=== PATIENT | female | born 1970 | race Caucasian/White ===

== ENCOUNTER 2017-10-09 00:39 | Day surgery (SDC) | payer OTHER ==
[~2017-10-09 00:39] MED LIST: ALBU.083IS IH; ALBU90OI INH; ALBU90OI6 INH; AMIT50 PO; AZIT250 PO; Augmentin 875-1 EACH PO; BUDE6HFA INH; BUTASPCAF PO; CARB200 PO; CIME400; CIPR500 PO; CLINDAMYCIN; CLON1 PO; COMBIVENT RESPIM4 GM; CYCL10 PO; DIAZ5 PO; DIPATR PO; DOXY100 PO; DULO30; ESTMEDA; ESTNORT; FLUSAL1005; FLUSAL1005 INH; FLUSAL2505 IH; FLUT44OIA INH; FURO40 PO; GABA300 PO; HYDACE10B PO; HYDACE5 PO; HYDCHL25 PO; HYDCHL50 PO; Hydrochlorothia25 MG PO; IBUP800 PO; LEVCAR2510 PO; LEVFLO500 PO; LEVSOD100 PO; LEVSOD88; LEVSOD88 PO; MAGCIT300 PO; METO100 PO; METO100ER PO; METO50 PO; METO50ER; METR500 PO; MONT10T; Micro-K10 MEQ; Norco 5-325 Ta1 EACH PO; OMEP20ER; OMEP20ER PO; ONDA4 PO; ONDA4ODT MM; ONDA8ODT; ONDA8ODT MM; OXYACE5T; OXYACE5T PO; OXYASA5T PO; OXYC1TAB11 PO; OXYCONTIN; PANT40; PARO10 PO; PARO20 PO; PERCOCET; PRED20 PO; PROACE100 PO; PROCODE120 PO; PROM25 PO; Percocet 10-321 EACH PO; Percocet 5-3251 EACH PO; RANI150; RANI150 PO; RXCYCL10 PO; RXHYD5325; RXHYDACE PO; RXONDA4ODT MM; RXOXYACE PO; RXPROM25 PO; SERT100; SERT25; SUCR1 PO; SULTRIDS PO; TAMS.4ER PO; TOBDEXOPSU OP; TOCO400 PO; TRAM50; TRAM50 PO; Ventolin/Prove6.7 GM INH; Zantac PO; Zofran Odt4 MG PO; Zofran Odt4 MG SL; Zovirax800 MG PO
[2018-01-29] MEDS ORDERED: Ambien5 MG PO (22:40)
[2018-01-29] MEDS ORDERED: DICL75ER PO (22:41)
[2018-01-29] MEDS ORDERED: VENL75ER PO (22:41)
[2018-01-29] MEDS ORDERED: MIRAPEX ER0.75 MG PO (22:42)
[2018-01-30] MEDS ORDERED: Cyclobenzaprine5 MG PO (03:31)
[2018-01-30] MEDS ORDERED: LIDO700A20 TOP (03:31)
== END 2017-10-09 23:09 ==
LOC: ATC 00:39
DX: M27.2 Inflammatory conditions of jaws (principal)
CPT/HCPCS: J1335; J7050

== ENCOUNTER 2017-10-14 10:58 | Day surgery (SDC) | payer OTHER ==
[2018-01-29] MEDS ORDERED: Ambien5 MG PO (22:40)
[2018-01-29] MEDS ORDERED: VENL75ER PO (22:41)
[2018-01-29] MEDS ORDERED: DICL75ER PO (22:41)
[2018-01-29] MEDS ORDERED: MIRAPEX ER0.75 MG PO (22:42)
[2018-01-30] MEDS ORDERED: Cyclobenzaprine5 MG PO (03:31)
[2018-01-30] MEDS ORDERED: LIDO700A20 TOP (03:31)
== END 2017-10-14 15:09 | disposition home or self-care (01) ==
LOC: ATC 10:58
DX: M27.2 Inflammatory conditions of jaws (principal)
CPT/HCPCS: 99211; J1335

== ENCOUNTER → 2017-12-15 | Outpatient (CLI) | payer OTHER ==
[~2017-12-15] MED LIST changes: +Ambien5 MG PO; +Cyclobenzaprine5 MG PO; +DICL75ER PO; +LIDO700A20 TOP; +MIRAPEX ER0.75 MG PO; +VENL75ER PO
== END ==
LOC: LAB EV 09:48
DX: R31.9 Hematuria, unspecified (principal)
CPT/HCPCS: 87086

== ENCOUNTER → 2018-03-30 | Outpatient (CLI) | payer OTHER | END | disposition home or self-care (01) | LOC: LAB SHORT 16:28 → LAB SRC 16:28 | DX: R31.9 Hematuria, unspecified (principal); R55 Syncope and collapse | CPT/HCPCS: 87086 ==

== ENCOUNTER → 2018-12-31 | Outpatient (CLI) | payer OTHER | END | disposition home or self-care (01) | LOC: LAB EV 17:21 → LAB SHORT 17:21 | DX: G25.81 Restless legs syndrome (principal) | CPT/HCPCS: 36415; 82306; 82607; 83735 ==

== ENCOUNTER 2019-04-17 09:17 | Emergency (ER) | payer OTHER ==
[~2019-04-17] VITALS: Ht 152.4 cm; Wt 103.4 kg
[~2019-04-17 09:17] MED LIST changes: -CARB200 PO; -GABA300 PO; -VENL75ER PO
[2019-04-17 09:48] LABS: BASOPHILS ABSOLUTE AUTO 0.07 K/mm3 (0.00-0.23); BASOPHILS PERCENT AUTO 1 % (0-2); EOSINOPHILS ABSOLUTE AUTO 0.14 K/mm3 (0.00-0.68); EOSINOPHILS PERCENT AUTO 1 % (0-6); Hematocrit 40.2 % (33.0-51.0); Hemoglobin 12.4 g/dL (11.5-16.0); IMMATURE GRAN ABSOLUTE AUTO 0.03 K/mm3 (0.00-0.10); IMMATURE GRAN PERCENT AUTO 0 % (0-1); LYMPHOCYTES ABSOLUTE AUTO 1.68 K/mm3 (0.84-5.20); LYMPHOCYTES PERCENT AUTO 17 % (21-46); MONOCYTES ABSOLUTE AUTO 0.93 K/mm3 (0.16-1.47); MONOCYTES PERCENT AUTO 10 % (4-13); Mean Corpuscular HGB 31.1 pg (26.0-34.0); Mean Corpuscular HGB Conc 30.8 g/dL (31.5-36.5); Mean Corpuscular Volume 101 fL (80-100); Mean Platelet Volume 10.7 fL (9.1-12.4); NEUTROPHILS PERCENT AUTO 71 % (41-73); Platelet Count 252 K/mm3 (150-400); RDW Coefficient Variation 12.9 % (11.7-14.2); RDW Standard Deviation 48.3 fL (35.1-46.3); Red Blood Cell Count 3.99 M/mm3 (3.80-5.20); White Blood Cell Count 9.75 K/mm3 (4.00-11.30)
[2019-04-17 10:07] LABS: Albumin, Blood 3.7 g/dL (3.4-5.0); Albumin/Globulin Ratio 0.9 (0.8-1.8); Bilirubin, Total 0.2 mg/dL (0.1-1.0); Bun/Creatinine Ratio 13.9 (12.0-20.0); Calcium, Blood 8.7 mg/dL (8.5-10.1); Creatinine, Blood 1.15 mg/dL (0.40-1.00); Globulin, Blood 4.2 g/dL (2.2-4.0); Potassium, Blood 4.3 mmol/L (3.5-5.5); Total Protein, Blood 7.9 g/dL (6.4-8.2)
[2019-04-17 10:35] LABS: Source, Urine Clean Catch
[2019-04-17 10:40] LABS: Appearance, Urine Cloudy (Clear); Bilirubin, Urine Neg (Neg); Blood, Urine 3+ (Neg); Color, Urine Amber (P-Yellow); Glucose Qualitative, Urine Neg (Neg); Ketones, Urine 1+ (Neg); Leukocyte Esterase, Urine 3+ (Neg); Nitrite, Urine Neg (Neg); Protein, Urine 2+ (Neg); Urobilinogen, Urine 1+ (Normal)
[2019-04-17 10:54] LABS: White Blood Cells, Urine 25-50 /hpf (0-5)
[2019-04-17 10:55] LABS: Squamous Epithelial Cells Many /hpf (Few)
[2019-04-17 10:56] LABS: Bacteria Few /hpf; Calcium Oxalate Crystals Mod /hpf
[2019-04-17 10:57] LABS: Amorphous Light (0-Heavy)
[2019-04-17 11:08] LABS: Base Excess Venous 4.2 mmol/L; Bicarbonate Venous 27.2 mmol/L (24.0-30.0); PCO2 Venous 53.3 mmHg (38-42); PO2 Venous 143 mmHg (38-42); pH Blood Venous 7.36 (7.34-7.37)
[2019-04-17] MEDS ORDERED: METO50 PO (16:43)
[2019-04-17] MEDS ORDERED: Zantac150 MG PO (16:43)
[2019-04-17] MEDS ORDERED: GABA300 PO (16:44)
[2019-04-17] MEDS ORDERED: ALBU90OI INH (16:45)
[2019-04-17] MEDS ORDERED: CARB200ER PO (16:45)
[2019-04-17] MEDS ORDERED: Prazosin HCl5 MG PO (16:46)
[2019-04-17] MEDS ORDERED: VENL75ER PO (16:46)
[2019-04-17] MEDS ORDERED: SINEMET 25-1001 EACH PO (16:49)
[2019-04-17] MEDS ORDERED: LEVSOD100 PO (16:49)
[2019-04-17] MEDS ORDERED: BUDE6HFA INH (16:53)
[2019-04-17] MEDS ORDERED: Norco 5-325 Ta1 EACH PO (18:16)
[2019-04-18] MEDS ORDERED: LOSA50 PO (11:40)
[2019-04-18] MEDS ORDERED: TORSE20 PO (11:41)
[2019-04-18] MEDS ORDERED: METO100ER PO (11:46)
== END 2019-04-17 12:22 | disposition home or self-care (01) ==
LOC: ER 09:17
PROVIDERS: Emergency Medicine
DX: R40.0 Somnolence (principal); E87.2 Acidosis; E66.9 Obesity, unspecified; Z68.41 Body mass index [BMI] 40.0-44.9, adult; Z88.8 Allergy status to other drugs, medicaments and biological substances; Z91.048 Other nonmedicinal substance allergy status; Z88.5 Allergy status to narcotic agent; Z88.1 Allergy status to other antibiotic agents; Z88.6 Allergy status to analgesic agent; Z79.899 Other long term (current) drug therapy; I10 Essential (primary) hypertension; J45.909 Unspecified asthma, uncomplicated; F17.210 Nicotine dependence, cigarettes, uncomplicated
CPT/HCPCS: 36415; 71046; 80053; 81001; 82803; 82947; 85025; 87086; 99284-25

== ENCOUNTER 2019-04-17 14:38 | Observation (INO) | payer OTHER ==
[~2019-04-17] VITALS: Ht 152.4 cm; Wt 124.3 kg
[2019-04-17] MEDS ORDERED: Zantac150 MG PO (16:43)
[2019-04-17] MEDS ORDERED: METO50 PO (16:43)
[2019-04-17] MEDS ORDERED: GABA300 PO (16:44)
[2019-04-17] MEDS ORDERED: CARB200ER PO (16:45)
[2019-04-17] MEDS ORDERED: ALBU90OI INH (16:45)
[2019-04-17] MEDS ORDERED: VENL75ER PO (16:46)
[2019-04-17] MEDS ORDERED: Prazosin HCl5 MG PO (16:46)
[2019-04-17] MEDS ORDERED: SINEMET 25-1001 EACH PO (16:49)
[2019-04-17] MEDS ORDERED: LEVSOD100 PO (16:49)
[2019-04-17] MEDS ORDERED: BUDE6HFA INH (16:53)
--- NOTE | 2019-04-17 17:55 | NUR ---
PT ARRIVAL. PT ARRIVED TO UNIT AT 1753 VIA RNEY, PT WAS ABLE TO SELF TRANSFER FROM [facility] TO BED. PT IS A&Ox4 AND IND IN THE ROOM. PT DENIES CHEST PAIN AT THIS TIME. TELE WAS PLACED, NSR IN THE 80'S-90'S PER [employer]. PT HAS 2+ PITTING EDEMA TO HER BLE. L/S COARSE W/EXP WHEEZES T/O AND DIM IN THE BASES. BT PRESENT AND HYPERACTIVE, ABD IS SOFT AND NONTENDER TO PALP. PT STATES SHE IS BEING TREATED FOR KIDNEY INFECTION BEFORE BEING ADMITTED. CALL LIGHT IN REACH, BED IS LOCKED AND LOW WILL CONTINUE TO MONITOR UNTIL REPORT IS GIVEN TO ONCOMING RN.
[2019-04-17] MEDS ORDERED: Norco 5-325 Ta1 EACH PO (18:16)
--- NOTE | 2019-04-17 19:18 | NUR ---
Echocardiogram completed.
--- NOTE | 2019-04-17 21:00 | NUR ---
ASSUME CARE REPORT RECIEVED FROM MOUNIKA OFF GOING RN.. PATIENT RETURN TO ROOM AFTER "GOING FOR A WALK OUTSIDE." NOTED TO BE SHORT OF BREATH GAIT STEADY VOIDS AMITA URINE. LUNG SOUNDS DECREASED ESPECIALLY IN THE BASES . ABDOMEN SOFT WITH BOWEL SOUNDS FOUR QUADS. PEDAL EDEMA NOTED IN FEET 1+. DENIES DISCOMFORT . DR AGUIAR IN TO SEE PATIENT CONTINUE TO MONITOR AND REPORT CHANGE IN PATIENT CONDITION.
--- NOTE | 2019-04-17 21:15 | NUR ---
DR GERONIMO IN TO SEE PATIENT ORDERS NOTED'
[2019-04-18 03:56] LABS: BASOPHILS ABSOLUTE AUTO 0.05 K/mm3 (0.00-0.23); BASOPHILS PERCENT AUTO 1 % (0-2); EOSINOPHILS ABSOLUTE AUTO 0.22 K/mm3 (0.00-0.68); EOSINOPHILS PERCENT AUTO 3 % (0-6); Hematocrit 38.8 % (33.0-51.0); Hemoglobin 12.1 g/dL (11.5-16.0); IMMATURE GRAN ABSOLUTE AUTO 0.05 K/mm3 (0.00-0.10); IMMATURE GRAN PERCENT AUTO 1 % (0-1); LYMPHOCYTES ABSOLUTE AUTO 2.74 K/mm3 (0.84-5.20); LYMPHOCYTES PERCENT AUTO 35 % (21-46); MONOCYTES ABSOLUTE AUTO 0.73 K/mm3 (0.16-1.47); MONOCYTES PERCENT AUTO 9 % (4-13); Mean Corpuscular HGB 31.3 pg (26.0-34.0); Mean Corpuscular HGB Conc 31.2 g/dL (31.5-36.5); Mean Corpuscular Volume 101 fL (80-100); Mean Platelet Volume 10.9 fL (9.1-12.4); NEUTROPHILS PERCENT AUTO 51 % (41-73); Platelet Count 274 K/mm3 (150-400); RDW Coefficient Variation 13.3 % (11.7-14.2); RDW Standard Deviation 49.5 fL (35.1-46.3); Red Blood Cell Count 3.86 M/mm3 (3.80-5.20); White Blood Cell Count 7.79 K/mm3 (4.00-11.30)
[2019-04-18 04:23] LABS: Anion Gap 4 mmol/L (6-16); Blood Urea Nitrogen 19 mg/dL (8-24); Bun/Creatinine Ratio 21.6 (12.0-20.0); CO2, Blood 31 mmol/L (21-32); Calcium, Blood 8.6 mg/dL (8.5-10.1); Chloride, Blood 105 mmol/L (98-108); Creatinine, Blood 0.88 mg/dL (0.40-1.00); Glomerular Filtration Rate >60 (60-); Glucose, Blood 136 mg/dL (70-99); Potassium, Blood 3.9 mmol/L (3.5-5.5); Sodium, Blood 140 mmol/L (136-145)
--- NOTE | 2019-04-18 06:50 | NUR ---
SHIFT SUMMARY RESTS QUIETLY WHEN UNDISTURBED MONITOR INTACT SHOWING SINUS RHYTHM HEART RATE 80.S DENIES DISCOMFORT SHORT OF BREATH ON EXERTION. PERIODS OF GREATER THAN SECONDS APNEA NOTED DURING SLEEP.SNORES. ABDOMEN SOFT WITH BOWEL SOUNDS FOUR QUADS. GAIT STEADY IN ROOM TO TOILET. OUT OF ROOM AT PRESENT " FAOR A WALK" CONTINUE TO MONITOR AND REPORT CHANGE IN PATIENT CONDITION
--- NOTE | 2019-04-18 08:00 | NUR ---
Recieved report from Renae UMANA. Patient up independent in room and is going outside to smoke. She is on RA and sats upper 90%s'. She has IV RFA dressing intact and site WNL's flushed and SL'd. She denies any current pain.
--- NOTE | 2019-04-18 10:00 | NUR ---
She is back from outside and Dr Camp in room and is making her med staus. She c/o of pain 03/15 amd medicated her with x2 [place] 5/325. She tolerated am meds without difficulty. Dr Hernandes by and jareth she can be discharged. Still independent iin room.
[2019-04-18] MEDS ORDERED: LOSA50 PO (11:40)
[2019-04-18] MEDS ORDERED: TORSE20 PO (11:41)
[2019-04-18] MEDS ORDERED: METO100ER PO (11:46)
--- NOTE | 2019-04-18 12:04 | NUR ---
Dr arevalo notified of her being able to go home and wrote discharge instructions. She got dressed and was given written discharge instrutions and we reviewed new med and they were called [facility]. Gave her early dose of Cozaar as she will not get scripts filled until am. IV was pulled intact and site WNL's. She ambulated to exit and got ride home POV.
== END 2019-04-18 12:05 | disposition home or self-care (01) ==
LOC: ER 14:38 → PCU 14:39
PROVIDERS: ADMIT Internal Medicine
DX: I11.0 Hypertensive heart disease with heart failure (principal); I50.31 Acute diastolic (congestive) heart failure; J96.12 Chronic respiratory failure with hypercapnia; E03.9 Hypothyroidism, unspecified; J44.9 Chronic obstructive pulmonary disease, unspecified; E66.2 Morbid (severe) obesity with alveolar hypoventilation; N20.1 Calculus of ureter; F17.210 Nicotine dependence, cigarettes, uncomplicated; Z68.43 Body mass index [BMI] 50.0-59.9, adult; Z87.442 Personal history of urinary calculi; Z88.1 Allergy status to other antibiotic agents; Z88.5 Allergy status to narcotic agent; Z88.8 Allergy status to other drugs, medicaments and biological substances; Z91.048 Other nonmedicinal substance allergy status; Z79.899 Other long term (current) drug therapy; Z79.01 Long term (current) use of anticoagulants; Z79.51 Long term (current) use of inhaled steroids; Z79.891 Long term (current) use of opiate analgesic
CPT/HCPCS: 36415; 80048; 83880; 84443; 84484; 85025; 93005; 93010; 93306; 94640; 94760; 96372; 96374; 99285-25; A9270-GY; G0378; J1650; J1940

== ENCOUNTER → 2021-05-23 | Outpatient (CLI) | payer OTHER ==
[~2021-05-23] MED LIST changes: +CARB200ER PO; +Cipro500 MG PO; +FAMO20; +Flagyl500 MG PO; +GABA300 PO; +LOSA50 PO; +MIRAPEX0.125 MG; +PRAZ5; +Prazosin HCl5 MG PO; +SINEMET 25-1001 EACH PO; +TORSE20 PO; +VENL75ER PO; +Zantac150 MG PO
[2021-05-24 10:07] LABS: Candida species (DNA Probe) Negative (NEGATIVE); G. vaginalis (DNA Probe) Negative (NEGATIVE); T. vaginalis (DNA Probe) Positive (NEGATIVE)
== END | disposition home or self-care (01) ==
LOC: LAB 16:45 → LAB SHORT 16:45
PROVIDERS: Nurse Practitioner Family
DX: Z72.51 High risk heterosexual behavior (principal)
CPT/HCPCS: 87480; 87510; 87660

== ENCOUNTER 2023-02-28 21:44 | Observation (INO) | payer OTHER ==
[~2023-02-28] VITALS: Ht 149.9 cm; Wt 103.0 kg
[2023-02-28 23:01] LABS: Source, Urine Clean Catch
[2023-02-28 23:06] LABS: Blood, Urine 1+ (Neg); Glucose Qualitative, Urine Neg (Neg); Ketones, Urine 1+ (Neg); Leukocyte Esterase, Urine 2+ (Neg); Nitrite, Urine Neg (Neg); Protein, Urine 2+ (Neg); Specific Gravity, Urine 1.025 (1.003-1.022); Urobilinogen, Urine 1+ (Normal)
[2023-02-28 23:08] LABS: Appearance, Urine Hazy (Clear); Bilirubin, Urine 2+ (Neg); Color, Urine Yellow (P-Yellow)
[2023-02-28 23:15] LABS: Amorphous Light (0-Heavy); Bacteria Mod /hpf; Red Blood Cells, Urine 0-2 /hpf (0-2); Squamous Epithelial Cells Few /hpf (Few); White Blood Cells, Urine 0-2 /hpf (0-5)
[2023-02-28 23:16] LABS: U Amphetamine Screen DETECTED; U Barbituate Screen Not Detected; U Benzodiazapine Screen DETECTED; U Buprenorphine Screen Not Detected; U Cannabinoids Screen Not Detected; U Cocaine Screen Not Detected; U Methadone Screen Not Detected; U Methamphetamine Screen DETECTED; U Opiates Screen Not Detected; U Oxycodone Screen Not Detected; U Phencyclidine Screen Not Detected; U Propoxyphene Screen Not Detected
[2023-02-28 23:19] LABS: BASOPHILS ABSOLUTE AUTO 0.06 K/mm3 (0.00-0.23); BASOPHILS PERCENT AUTO 1 % (0-2); EOSINOPHILS ABSOLUTE AUTO 0.16 K/mm3 (0.00-0.68); EOSINOPHILS PERCENT AUTO 2 % (0-6); Hematocrit 43.9 % (33.0-51.0); Hemoglobin 14.4 g/dL (11.5-16.0); IMMATURE GRAN ABSOLUTE AUTO 0.02 K/mm3 (0.00-0.10); IMMATURE GRAN PERCENT AUTO 0 % (0-1); LYMPHOCYTES ABSOLUTE AUTO 1.54 K/mm3 (0.84-5.20); LYMPHOCYTES PERCENT AUTO 21 % (21-46); MONOCYTES ABSOLUTE AUTO 0.82 K/mm3 (0.16-1.47); MONOCYTES PERCENT AUTO 11 % (4-13); Mean Corpuscular HGB 30.4 pg (26.0-34.0); Mean Corpuscular HGB Conc 32.8 g/dL (31.5-36.5); Mean Corpuscular Volume 93 fL (80-100); NEUTROPHILS PERCENT AUTO 65 % (41-73); RDW Coefficient Variation 12.3 % (11.7-14.2); RDW Standard Deviation 42.3 fL (35.1-46.3); Red Blood Cell Count 4.74 M/mm3 (3.80-5.20)
[2023-02-28 23:21] LABS: Mean Platelet Volume 10.1 fL (9.1-12.4); Platelet Count 328 K/mm3 (150-400)
[2023-02-28 23:34] LABS: Ethanol (Alcohol), Blood, Med <3 mg/dL; Salicylate 2.2 mg/dL (2.8-20.0)
[2023-02-28 23:37] LABS: Acetaminophen, Random <2.0 ug/mL (10.0-30.0); Alanine Aminotransfer (ALT/SGP 67 U/L (12-78); Albumin/Globulin Ratio 0.9 (0.8-1.8); Alk Phos 139 U/L (50-136); Anion Gap 10 mmol/L (6-16); Aspartate Aminotrans (AST/SGOT 36 U/L (12-37); Bilirubin, Total 0.2 mg/dL (0.1-1.0); Blood Urea Nitrogen 16 mg/dL (8-24); Bun/Creatinine Ratio 9.2 (12.0-20.0); CO2, Blood 26 mmol/L (21-32); Calcium, Blood 9.3 mg/dL (8.5-10.1); Chloride, Blood 105 mmol/L (98-108); Creatinine, Blood 1.73 mg/dL (0.40-1.00); Globulin, Blood 4.3 g/dL (2.2-4.0); Glomerular Filtration Rate 36 (60-); Glucose, Blood 117 mg/dL (70-99); Potassium, Blood 4.3 mmol/L (3.5-5.5); Sodium, Blood 141 mmol/L (136-145); Total Protein, Blood 8.3 g/dL (6.4-8.2)
[2023-03-02] MEDS ORDERED: Benztropine Me0.5 MG PO (18:24)
[2023-03-02] MEDS ORDERED: FLUTICASONE-SA1 EAC8 IH (18:25)
[2023-03-02] MEDS ORDERED: LAMO25 (18:31)
[2023-03-03 20:00] VITALS: BP 125/80
== END 2023-03-04 14:00 ==
LOC: ER 21:44 → EOR 21:45
PROVIDERS: ADMIT Emergency Medicine
DX: F31.9 Bipolar disorder, unspecified (principal); F15.20 Other stimulant dependence, uncomplicated; I10 Essential (primary) hypertension; J45.909 Unspecified asthma, uncomplicated; Z87.891 Personal history of nicotine dependence; Z88.5 Allergy status to narcotic agent; Z88.8 Allergy status to other drugs, medicaments and biological substances; Z79.899 Other long term (current) drug therapy
CPT/HCPCS: 71045; 80053; 81001; 81025; 83880; 84484; 85025; 86592; 87086; 93005; 93010; 96372; 99285-25; A9270; G0378; G0480; J3486; Q3014